=== PATIENT | female | born 1965 | race Caucasian/White ===

== ENCOUNTER 2024-09-26 10:40 | Emergency (ER) | payer BC, MEDICARE ==
[~2024-09-26] VITALS: Ht 162.6 cm; Wt 53.5 kg
[2024-09-26] MEDS ORDERED: HYDROCODONE/APAP 5/325MG TABLET ONE (11:43)
[2024-09-26] MEDS: HYDROCODONE/APAP 5/325MG TABLET PO ONE (11:48)
[2024-09-26] MEDS ORDERED: HYDR-4303 PO (13:16)
[2024-09-26] MEDS ORDERED: NALO4SPR BNOSTRILS (13:16)
[2024-09-26 13:43] VITALS: BP 143/77; TEMP 98.8; O2SAT 99
== END 2024-09-26 13:43 | disposition home or self-care (01) ==
LOC: ER 10:43
DX: S42.034A Nondisplaced fracture of lateral end of right clavicle, initial encounter for closed fracture (principal); Z79.01 Long term (current) use of anticoagulants; Z86.73 Personal history of transient ischemic attack (TIA), and cerebral infarction without residual deficits; Z79.899 Other long term (current) drug therapy; W11.XXXA Fall on and from ladder, initial encounter; Y93.89 Activity, other specified; Y92.89 Other specified places as the place of occurrence of the external cause; Y99.8 Other external cause status
CPT/HCPCS: 73000-TC; 73010-TC; 73030-TC; 73060-TC